=== PATIENT | female | born 1980 | race Caucasian/White ===

== ENCOUNTER 2017-08-22 12:14 | Emergency (ER) | payer SELFPAY ==
[2017-08-22 13:42] VITALS: BP 126/75
--- NOTE | 2017-08-22 14:06 | UC ---
Ear Complaint HPI - HPI Summary HPI Summary: Strange sound and discomfort in the left ear . it has been present for a few days. - History of Current Complaint Chief Complaint: UCEar Stated Complaint: LEFT EAR PAIN Time Seen by Provider: 08/22/17 13:35 Hx Obtained From: Patient Hx Last Menstrual Period: 07/31/17 ?: No Onset/Duration: Gradual Onset, Lasting Days Severity Initially: Mild Severity Currently: Mild Associated Signs/Symptoms: Positive: Foreign Body Sensation. Negative: Discharge, Hearing Loss, Trauma to Ear, URI Symptoms - Allergies/Home Medications Allergies/Adverse Reactions: Allergies Allergy/AdvReac Type Severity Reaction Status Date / Time No Known Allergies Allergy Verified 08/22/17 13:36 Home Medications: Home Medications NK [No Home Medications Reported] 08/22/17 [History Confirmed 08/22/17] PMH/Surg Hx/FS Hx/Imm Hx Previously Healthy: Yes - Surgical History Surgical History: Yes Surgery Procedure, Year, and Place: c- section, tubal ligation - Family History Known Family History: Positive: Other - cancer, but not breast cancer - Social History Alcohol Use: None Substance Use Type: Excessive Caffeine Smoking Status (MU): Heavy Every Day Tobacco Smoker Type: Cigarettes Amount Used/How Often: 1/2 PPD Household Exposure Type: Cigarettes Review of Systems ENT: Ear Ache All Other Systems Reviewed And Are Negative: Yes Physical Exam Triage Information Reviewed: Yes Appearance: Well-Appearing, No Pain Distress, Well-Nourished Vital Signs: Initial Vital Signs Temp 98.6 F 08/22/17 13:37 Pulse 87 08/22/17 13:37 Resp 16 08/22/17 13:37 BP 126/75 08/22/17 13:37 Pulse Ox 100 08/22/17 13:37 Vital Signs Reviewed: Yes Eyes: Positive: Conjunctiva Clear ENT: Positive: Pharynx normal, Other: - right tm obscured by wax. left has hair clippings on the TM but otherwise no tragal or pinna tenderness and no effusion , redness or bulging.. Negative: Tonsillar swelling, Tonsillar exudate, Trismus Neck exam: Normal Neck: Positive: Supple, Nontender, No Lymphadenopathy Respiratory Exam: Normal Respiratory: Positive: Chest non-tender, Lungs clear, Normal breath sounds, No respiratory distress Cardiovascular Exam: Normal Cardiovascular: Positive: RRR, No Murmur, Pulses Normal Abdomen Description: Negative: Distended Musculoskeletal: Positive: No Edema Neurological: Positive: Alert, Muscle Tone Normal. Negative: Fatigued Psychological Exam: Normal Skin: Negative: rashes Ear Complaint Course/Dx - Course Course Of Treatment: left ear Fb removed by irrigation. right impacted cerumen. - Differential Dx/Diagnosis Provider Diagnoses: right impacted cerumen. left foreign body. Discharge - Discharge Plan Condition: Good Disposition: HOME Patient Education Materials: Cerumen Impaction (ED)
== END 2017-08-22 14:24 | disposition home or self-care (01) ==
LOC: UCCORT 12:14
DX: T16.2XXA Foreign body in left ear, initial encounter (principal); X58.XXXA Exposure to other specified factors, initial encounter; Y92.9 Unspecified place or not applicable; H61.21 Impacted cerumen, right ear; F17.210 Nicotine dependence, cigarettes, uncomplicated
CPT/HCPCS: 99213; G0463

== ENCOUNTER 2019-04-13 09:54 | Emergency (ER) | payer SELFPAY ==
[2019-04-13 10:23] VITALS: BP 128/75
--- NOTE | 2019-04-13 10:35 | UC ---
General HPI - HPI Summary HPI Summary: PIMPLE ON R INNER BUTT THAT GOT BIGGER. PT STATES IT POPPED WHILE CHANGING FOR HER EXAM HERE. NO FEVER OR HX MRSA. - History of Current Complaint Chief Complaint: UCSkin Stated Complaint: SKIN CONCERN Time Seen by Provider: 04/13/19 10:22 Hx Obtained From: Patient Hx Last Menstrual Period: 03/21/19 Onset/Duration: Gradual Onset Timing: Constant Pain Intensity: 7 Associated Signs & Symptoms: Negative: Fever - Allergy/Home Medications Allergies/Adverse Reactions: Allergies Allergy/AdvReac Type Severity Reaction Status Date / Time No Known Allergies Allergy Verified 04/13/19 10:18 PMH/Surg Hx/FS Hx/Imm Hx Previously Healthy: Yes - Surgical History Surgical History: Yes Surgery Procedure, Year, and Place: c- section, tubal ligation - Family History Known Family History: Positive: Other - cancer, but not breast cancer - Social History Occupation: Employed Full-time Alcohol Use: None Substance Use Type: Excessive Caffeine Smoking Status (MU): Heavy Every Day Tobacco Smoker Type: Cigarettes Amount Used/How Often: 1/2 PPD Household Exposure Type: Cigarettes - Immunization History Vaccination Up to Date: Yes Review of Systems All Other Systems Reviewed And Are Negative: Yes Constitutional: Negative: Fever Skin: Positive: Rash - R BUTT Physical Exam Triage Information Reviewed: Yes Appearance: Well-Appearing Vital Signs: Initial Vital Signs Temp 98.6 F 04/13/19 10:19 Pulse 93 04/13/19 10:19 Resp 16 04/13/19 10:19 BP 128/75 04/13/19 10:19 Pulse Ox 100 04/13/19 10:19 Vital Signs Reviewed: Yes Eyes: Positive: Conjunctiva Clear Neck: Positive: Supple Respiratory: Positive: No respiratory distress Cardiovascular: Positive: RRR Abdomen Description: Positive: Nontender, Other: - No inguinal adenopathy. Musculoskeletal: Positive: ROM Intact Neurological: Positive: Alert Psychological: Positive: Age Appropriate Behavior Skin Exam: Normal, Other - Open abscess R inner-anterior buttock with mild surrounding erythema but not fluctuan or indurated. Sterile Qtip reveals depth oc 1cm which was cultured. no additional drainage. Course/Dx - Course Course Of Treatment: This provider applied Bacitracin to the site and a non adhering/ non occlusive dressing. - Differential Dx - Multi-Symptom Differential Diagnoses: Other - abscess that drained and nothing more to I&D. will cover surrounding erythema with Bactrim. - Diagnoses Provider Diagnosis: Abscess Discharge - Sign-Out/Discharge Documenting (check all that apply): Patient Departure All imaging exams completed and their final reports reviewed: No Studies - Discharge Plan Condition: Stable Disposition: HOME Prescriptions: Sulfamethox/Trimethoprim DS* [Bactrim DS 800/160 TAB*] 1 tab PO BID 10 Days #20 tab Patient Education Materials: Abscess Follow-up (ED) Forms: *Work Release Referrals: Ramona Masters NP [Primary Care Provider] - Additional Instructions: FOLLOW UP PRIMARY CARE IN 2-3 DAYS OR SOONER IF WORSE. - Billing Disposition and Condition Condition: STABLE Disposition: Home
--- NOTE | 2019-04-16 07:15 | ED ---
Progress - Progress Note Progress Note: Wound culture and sensitivities come back from April 13, 2019. Negative MRSA negative staph aureus. There is another species of staph a grew out. For the sensitivities Bactrim was not listed and the patient was put on Bactrim. Nursing to call patient and find out if the patient improving. If the patient's improving he'll stay on Bactrim if not we will change the antibiotic. Course/Dx - Diagnoses Provider Diagnoses: Abscess Discharge - Sign-Out/Discharge Documenting (check all that apply): Patient Departure All imaging exams completed and their final reports reviewed: No Studies - Discharge Plan Condition: Stable Disposition: HOME Prescriptions: Fluconazole [Diflucan 150 MG (NF)] 150 mg PO ONCE #1 tab Sulfamethox/Trimethoprim DS* [Bactrim DS 800/160 TAB*] 1 tab PO BID 10 Days #20 tab Patient Education Materials: Abscess Follow-up (ED) Forms: *Work Release Referrals: Ramona Masters [employer] [Primary Care Provider] - Additional Instructions: FOLLOW UP PRIMARY CARE IN 2-3 DAYS OR SOONER IF WORSE. - Billing Disposition and Condition Condition: STABLE Disposition: Home
== END 2019-04-13 10:46 | disposition home or self-care (01) ==
LOC: UCCORT 09:54
DX: L02.31 Cutaneous abscess of buttock (principal); F17.210 Nicotine dependence, cigarettes, uncomplicated
CPT/HCPCS: 87070; 87076; 87077; 87186; 87205; 87640; 87641; 99212; G0463